=== PATIENT | female | born 1950 | race Caucasian/White ===

== ENCOUNTER 2020-10-29 11:02 | Emergency (ER) | payer MEDICARE ==
[~2020-10-29] VITALS: Ht 160 cm; Wt 59.6 kg
--- NOTE | 2020-10-29 11:25 | RAD ---
CT scan of the head without contrast 10/29/2020 Clinical History: Expressive aphasia. Code stroke. Technique: Unenhanced, contiguous, 5 mm axial sections were obtained through the head. One or more of the following individualized dose reduction techniques were utilized for this study: 1. Automated exposure control. 2. Adjustment of the mA and/or kV according to patient size. 3. Use of iterative reconstruction technique. Findings: No previous studies are available for comparison. There is mild generalized parenchymal atrophy. Areas of decreased attenuation are seen within the per iventricular and subcortical white matter of both cerebral hemispheres consistent with areas of small vessel ischemic disease. No acute parenchymal abnormality is seen. No extra-axial fluid collection i s noted. No skull fracture is seen. Impression: No acute intracranial abnormality is seen. This result was discussed with Dr. Corral at 1120 hours. FOR INTERNAL CODING PURPOSES RESULT CODE: (C) Electronically signed by: Ye Jackson MD (10/29/2020 11:22 AM) [id number]
--- NOTE | 2020-10-29 11:28 | EKG ---
[address] [address] Test Date: 2020-10-29 Test Time: 11:21:30 Pat Name: WILLY ORTIZ Department: Room: Gender: F [employer]: ZACHARY : 1950 Requested By: MADISON BAR Order Number: [id number] Reading MD: Measurements Intervals [place] Rate: 102 P: 60 MN: 148 QRS: -41 QRSD: 72 T: 74 QT: 338 QTc: 445 Interpretive Statements SINUS TACHYCARDIA LEFT ATRIAL ABNORMALITY ABNORMAL LEFT AXIS DEVIATION LEFT ANTERIOR FASCICULAR BLOCK QRS(T) CONTOUR ABNORMALITY CONSISTENT WITH ANTEROSEPTAL INFARCT AGE UNDETERMINED T ABNORMALITY IN HIGH LATERAL LEADS ABNORMAL ECG RI6.02 No previous ECG available for comparison
[2020-10-29] MEDS ORDERED: IV NORMAL SALINE 1,000ML 1,000 ML IV ONE (11:30)
[2020-10-29] MEDS ORDERED: ASPIRIN ENTERIC COATED 325 MG TABLET.DR. PO ONE ×2 (11:33→11:45)
[2020-10-29 11:41] LABS: BASO % 0 % (0-3); EOS % 0 % (0-3); HEMATOCRIT 44.9 % (36.0-47.0); HEMOGLOBIN 15.1 g/dL (12.0-15.5); LYMPH % 10 % (24-48); MEAN CORPUSCULAR HEMOGLOBIN 30 pg (25-35); MEAN CORPUSCULAR HGB CONC 34 g/dL (31-37); MEAN CORPUSCULAR VOLUME 90 fL (79-100); MONO # 0.5 x10^3/uL (0.0-1.1); MONO % 5 % (0-9); NEUT # 9.2 x10^3uL (1.8-7.7); NEUT % 85 % (31-73); PLATELET COUNT 237 x10^3/uL (140-400); RED BLOOD COUNT 4.96 x10^6/uL (3.50-5.40); RED CELL DISTRIBUTION WIDTH 12.5 % (11.5-14.5); WHITE BLOOD COUNT 10.8 x10^3/uL (4.0-11.0)
[2020-10-29] MEDS ORDERED: IOHEXOL 350 MG/ML 100 ML VIAL. IV ONE (11:45)
[2020-10-29 11:51] LABS: CALCIUM 9.7 mg/dL (8.5-10.1); CREATININE 0.8 mg/dL (0.6-1.0); GFR 71.1; POTASSIUM 4.1 mmol/L (3.5-5.1)
--- NOTE | 2020-10-29 11:57 | RAD ---
EXAM: Chest, single view. HISTORY: Altered mental status. COMPARISON: None. FINDINGS: A frontal view of the chest obtained. There is no infiltrate, pleural effusion or pneumotho rax. The heart is normal in size. There are circumscribed nodules overlying the lower thorax due to n ipple shadows. IMPRESSION: No acute pulmonary finding. Electronically signed by: Isadora Pavon MD (10/29/2020 11:54 AM) [id number]
[2020-10-29] MEDS ORDERED: CONTRAST GIVEN. MC PRN (12:00)
[2020-10-29 12:02] LABS: ALBUMIN 4.5 g/dL (3.4-5.0); ALBUMIN/GLOBULIN RATIO 1.4 (1.0-1.7); TOTAL BILIRUBIN 0.4 mg/dL (0.2-1.0); TOTAL PROTEIN 7.8 g/dL (6.4-8.2)
--- NOTE | 2020-10-29 12:22 | PHYS DOC ---
Past History Additional Past Medical Histor: Vertigo, "memory issues" Past Medical History Limited secondary to altered mental status. Past Surgical History: No Surgical History Past Surgical History Limited secondary to altered mental status. Smoking: Non-smoker Alcohol Use: None Drug Use: None Social History Limited secondary to altered mental status. General Adult EDM: Chief Complaint: ALTERED MENTAL STATUS HPI: HPI: 70-year-old female presents with her daughter by private vehicle with report of altered mental status. Daughter reports she was called by patient's place of employment at 0948 that the patient was acting abnormally. Daughter reports patient was acting "funny "and not comprehending what people were asking her. Daughter reports she arrived to work around 7 AM this morning but is unsure if she was completely normal at that time. Daughter reports that the last time she saw her normal was last night at approximately 2100 when patient was reading a story to her grandchildren. No history of trauma. Denies use of blood thinners. Denies fever or chills. Daughter reports significant family history of dementia and has noted some mild intermittent changes in her mother in regards to some short-term memory issues however today's presentation is significantly different than prior. History of present illness limited secondary to altered mental status. Review of Systems: Review of Systems: Constitutional: Denies fever or chills Cardiovascular: Denies chest pain or palpitations GI: Denies abdominal pain, nausea, or vomiting : Denies dysuria or hematuria Neurologic: Denies headache; reports altered mental status Review of systems limited secondary to altered mental status. Current Medications: Current Meds: Current Medications Medications (Trade) Dose Ordered Sig/Gagan Start Time Stop Time Status Last Admin Dose Admin Aspirin (Aspirin Enteric Coated) 325 mg STK-MED ONCE 10/29/20 11:33 10/29/20 11:33 DC Info (Do NOT chart on this entry -- for MONITORING) 1 each PRN DAILY PRN 10/29/20 12:00 10/31/20 11:59 Iohexol (Omnipaque 350 Mg/ml) 100 ml 1X ONCE 10/29/20 11:45 10/29/20 11:48 DC 10/29/20 11:46 100 ML Sodium Chloride 1,000 ml @ 1,000 mls/hr 1X ONCE 10/29/20 11:30 10/29/20 12:29 10/29/20 11:30 1,000 MLS/HR Allergies: Allergies: Allergies Coded Allergies Type Severity Reaction Last Updated Verified No Known Drug Allergies 10/29/20 No Physical Exam: PE: Constitutional: Well developed, well nourished, no acute distress, non-toxic appearance, confused HENT: Normocephalic, atraumatic Eyes: PERRL, EOMI, conjunctiva normal, no discharge Neck: Normal range of motion, no tenderness, supple Lungs & Thorax: No respiratory distress, equal chest rise and fall Abdomen: Soft, no tenderness Skin: Warm, dry, no erythema, no rash Back: No tenderness, no CVA tenderness Extremities: No tenderness, ROM intact, no edema, no deformity, strength 5/5 to BUE and BLE Neurologic: Alert and oriented X 1, confused, expressive aphasia, normal motor function, normal sensory function, speech normal Psychologic: Affect normal, judgment abnormal Current Patient Data: Labs: Laboratory Tests Test 10/29/20 11:12 10/29/20 11:23 Glucose (Fingerstick) 118 mg/dL (70-99) H White Blood Count 10.8 x10^3/uL (4.0-11.0) Red Blood Count 4.96 x10^6/uL (3.50-5.40) Hemoglobin 15.1 g/dL (12.0-15.5) Hematocrit 44.9 % (36.0-47.0) Mean Corpuscular Volume 90 fL (79-100) Mean Corpuscular Hemoglobin 30 pg (25-35) Mean Corpuscular Hemoglobin Concent 34 g/dL (31-37) Red Cell Distribution Width 12.5 % (11.5-14.5) Platelet Count 237 x10^3/uL (140-400) Neutrophils (%) (Auto) 85 % (31-73) H Lymphocytes (%) (Auto) 10 % (24-48) L Monocytes (%) (Auto) 5 % (0-9) Eosinophils (%) (Auto) 0 % (0-3) Basophils (%) (Auto) 0 % (0-3) Neutrophils # (Auto) 9.2 x10^3uL (1.8-7.7) H Lymphocytes # (Auto) 1.0 x10^3/uL (1.0-4.8) Monocytes # (Auto) 0.5 x10^3/uL (0.0-1.1) Eosinophils # (Auto) 0.0 x10^3/uL (0.0-0.7) Basophils # (Auto) 0.0 x10^3/uL (0.0-0.2) Prothrombin Time 9.9 SEC (9.4-11.4) Prothrombin Time INR 1.0 (0.9-1.1) Activated Partial Thromboplast Time 26 SEC (23-33) Sodium Level 144 mmol/L (136-145) Potassium Level 4.1 mmol/L (3.5-5.1) Chloride Level 104 mmol/L (98-107) Carbon Dioxide Level 26 mmol/L (21-32) Anion Gap 14 (6-14) Blood Urea Nitrogen 15 mg/dL (7-20) Creatinine 0.8 mg/dL (0.6-1.0) Estimated GFR (Cockcroft-Gault) 71.1 BUN/Creatinine Ratio 19 (6-20) Glucose Level 119 mg/dL (70-99) H Calcium Level 9.7 mg/dL (8.5-10.1) Magnesium Level 2.0 mg/dL (1.8-2.4) Total Bilirubin 0.4 mg/dL (0.2-1.0) Aspartate Amino Transferase (AST) 15 U/L (15-37) Alanine Aminotransferase (ALT) 39 U/L (14-59) Alkaline Phosphatase 86 U/L (46-116) Ammonia < 10 mcmol/L (11-34) L Troponin I Quantitative < 0.170 ng/mL (0-0.055) H Total Protein 7.8 g/dL (6.4-8.2) Albumin 4.5 g/dL (3.4-5.0) Albumin/Globulin Ratio 1.4 (1.0-1.7) Ethyl Alcohol Level < 10 mg/dL (0-10) EKG: EKG: @1121 Sinus tachycardia at 102bpm, NO ST elevation, QRS 72ms, QT/QTc 338/445ms, some wandering baseline/artifact Radiology/Procedures: Radiology/Procedures: PROCEDURE: CT CODE STROKE HEAD WO CT scan of the head without contrast 10/29/2020 Clinical History: Expressive aphasia. Code stroke. Technique: Unenhanced, contiguous, 5 mm axial sections were obtained through the head. One or more of the following individualized dose reduction techniques were utilized for this study: 1. Automated exposure control. 2. Adjustment of the mA and/or kV according to patient size. 3. Use of iterative reconstruction technique. Findings: No previous studies are available for comparison. There is mild generalized parenchymal atrophy. Areas of decreased attenuation are seen within the periventricular and subcortical white matter of both cerebral hemispheres consistent with areas of small vessel ischemic disease. No acute parenchymal abnormality is seen. No extra-axial fluid collection is noted. No skull fracture is seen. Impression: No acute intracranial abnormality is seen. This result was discussed with Dr. Bar at 1120 hours. FOR INTERNAL CODING PURPOSES RESULT CODE: (C) PROCEDURE: CHEST AP ONLY EXAM: Chest, single view. HISTORY: Altered mental status. COMPARISON: None. FINDINGS: A frontal view of the chest obtained. There is no infiltrate, pleural effusion or pneumothorax. The heart is normal in size. There are circumscribed nodules overlying the lower thorax due to nipple shadows. IMPRESSION: No acute pulmonary finding. Electronically signed by: Isadora Pavon MD (10/29/2020 11:54 AM) [id number] PROCEDURE: CT ANGIOGRAPHY HEAD AND NECK EXAM: CT angiogram of the head and neck with intravenous contrast. HISTORY: Excessive aphasia. TECHNIQUE: Computed tomographic images the head and neck were obtained following the administration of intravenous contrast. 3-dimensional images were obtained. *One or more of the following individualized dose reduction techniques were utilized for this examination: 1. Automated exposure control. 2. Adjustment of the mA and/or kV according to patient size. 3. Use of iterative reconstruction technique. COMPARISON: Noncontrast head CT obtained on the same date. FINDINGS: There is a normal caliber aortic arch and standard aortic arch branching pattern. There is partially calcified atherosclerotic plaque at the origin of the left subclavian artery, without evidence of stenosis. The carotid bifurcations are widely patent. There is slight asymmetry in the caliber of the left greater than right internal carotid arteries which is likely physiologic given the absence of focal stenosis. The anterior communicating artery is patent. The posterior communicating arteries are likely developmentally absent. There is no arterial occlusion or severe stenosis. There is no suspicious enhancing lesion. There is no aneurysm or vascular malformation. The basilar artery is widely patent. There is a dominant left vertebral artery and hypoplastic distal right vertebral artery, a normal variant. There is mild partially calcified atherosclerotic plaque involving the distal left vertebral artery, with approximately 50 percent stenosis at the skull base. The nonangiographic portion of the exam demonstrates no mass effect or midline shift. There is no hydrocephalus. The orbits are unremarkable. The paranasal sinuses are clear. The mastoid air cells are clear. There are degenerative changes throughout the cervical spine. This results in moderate right foraminal stenosis at C3-C4, mild to moderate right and moderate left foraminal stenosis at C5-C6 and moderate left foraminal stenosis at C6-C7. There is a heterogeneous thyroid containing multiple nodules and cysts. There is biapical pleural parenchymal scarring and emphysema. There is no neck lymphadenopathy. The airway is midline and patent. IMPRESSION: 1. No evidence of severe stenosis or arterial occlusion. There is mild atherosclerotic plaque within the distal left vertebral artery with approximately 50 percent stenosis. There are normal cerebral vascular anatomic variants, described above. 2. Cerebral white matter changes, likely due to chronic small vessel disease. Note is made that MRI is more sensitive for acute infarction. 3. Multilevel degenerative change involving the cervical spine, resulting in stenosis as described above. 4. Heterogeneous thyroid containing multiple nodules. Findings were discussed with Dr. Bar in the ED at 1220 hours on 10/29/2020. PQRS Compliance Statement - Stenosis calculations for CT, MR and conventional angiography are based upon measurement of the distal ICA diameter in accordance with the NASCET methodology. Stenosis calculations for carotid ultrasound studies are derived from validated velocity criteria which are known to correlate with the NASCET methodology. Electronically signed by: Isadora Pavon MD (10/29/2020 12:21 PM) [id number] Electronically signed by: Ye Jackson MD (10/29/2020 11:22 AM) [id number] Heart Score: C/O Chest Pain: N/A Course & Med Decision Making: Course & Med Decision Making Pertinent Labs and Imaging studies reviewed. (See chart for details) Patient presents with report of altered mental status. There is lack of clarity regarding patient's last known well. Patient had presented to work at approximately 0700 but no one was able to confirm that patient was completely normal. Daughter received call at 0948. NIHSS 5 upon arrival primarily due to expressive aphasia. Patient is unable to recognize any of the pictures and unable to read words or sentences in stroke packet. No motor deficit appreciated. Sensation intact. Code stroke called. Patient sent immediately for CT head. CT head without acute process. Aspirin provided. Given lack of clarity regarding last known well, decision to hold TPA. This was discussed with both patient and her daughter who are both in agreement. CTA head and neck also without acute process. Labs also previously obtained and posted to chart. WBC within normal limits. No electrolyte abnormality appreciated. Ammonia negative. Lactic acid slightly elevated at 2.3. UA without signs of infection. EKG stable. Chest x-ray also stable. Patient requiring transfer for admission to [facility] due to nee d for neurology and MRI for further evaluation and treatment. Discussed with Dr. Boucher (hospitalist) who is in agreement with transfer for admission at [facility]. Discussed case with Dr. Soler (neurology), who is in agreement with consultation. Discussed findings and plan with patient and her daughter, who acknowledge understanding and agreement. Kim Disclaimer: Kim Disclaimer: This electronic medical record was generated, in whole or in part, using a voice recognition dictation system. Departure Departure: Impression: Primary Impression: Expressive aphasia Additional Impression: Lactic acidosis Disposition: 02 DC/TRF OTHER SHORT TERM HOS ([facility]- Dr. Boucher accepting) Admitting Physician: Aren Boucher Condition: STABLE Referrals: PCP,UNKNOWN (PCP) NIHSS - ED NIH Stroke Scale: NIH Stroke Scale Response (Comments) Value Level of Consciousness: 0 Alert/Responsive 0 LOC Questions: 1 Answers one correctly 1 LOC Commands: 2 Perform neither task 2 Best Gaze: 0 Normal 0 Visual: 0 No visual loss 0 Facial Palsy: 0 Normal, symmetrical 0 Motor - Left Arm 0 No drift 0 Motor - Right Arm 0 No drift 0 Motor - Left Leg 0 No drift 0 Motor: Right Leg 0 No drift 0 Limb Ataxia: 0 Absent 0 Sensory: 0 No loss 0 Best Language: 2 Severe aphasia (Expressive) 2 Dysathria: 0 Normal 0 Extinction and Inattention: 0 Normal 0 Total 5 Critical Care Time Critical care time was 30 minutes which includes time at bedside, spent in discussion of patient's care with specialists and/or family members, with interpretation of laboratory and/or radiological studies and is exclusive of procedures. MADISON BAR DO Oct 29, 2020 12:22
--- NOTE | 2020-10-29 12:23 | RAD ---
EXAM: CT angiogram of the head and neck with intravenous contrast. HISTORY: Excessive aphasia. TECHNIQUE: Computed tomographic images the head and neck were obtained following the administration o f intravenous contrast. 3-dimensional images were obtained. *One or more of the following individualized dose reduction techniques were utilized for this examina tion: 1. Automated exposure control. 2. Adjustment of the mA and/or kV according to patient size. 3. Use of iterative reconstruction technique. COMPARISON: Noncontrast head CT obtained on the same date. FINDINGS: There is a normal caliber aortic arch and standard aortic arch branching pattern. There is partially calcified atherosclerotic plaque at the origin of the left subclavian artery, without evide nce of stenosis. The carotid bifurcations are widely patent. There is slight asymmetry in the caliber of the left greater than right internal carotid arteries which is likely physiologic given the absen ce of focal stenosis. The anterior communicating artery is patent. The posterior communicating arteri es are likely developmentally absent. There is no arterial occlusion or severe stenosis. There is no suspicious enhancing lesion. There is no aneurysm or vascular malformation. The basilar artery is wid bryan patent. There is a dominant left vertebral artery and hypoplastic distal right vertebral artery, a normal variant. There is mild partially calcified atherosclerotic plaque involving the distal left vertebral artery, with approximately 50 percent stenosis at the skull base. The nonangiographic portion of the exam demonstrates no mass effect or midline shift. There is no hyd rocephalus. The orbits are unremarkable. The paranasal sinuses are clear. The mastoid air cells are c lear. There are degenerative changes throughout the cervical spine. This results in moderate right fo raminal stenosis at C3-C4, mild to moderate right and moderate left foraminal stenosis at C5-C6 and m oderate left foraminal stenosis at C6-C7. There is a heterogeneous thyroid containing multiple nodule s and cysts. There is biapical pleural parenchymal scarring and emphysema. There is no neck lymphaden opathy. The airway is midline and patent. IMPRESSION: 1. No evidence of severe stenosis or arterial occlusion. There is mild atherosclerotic plaque within the distal left vertebral artery with approximately 50 percent stenosis. There are normal cerebral va scular anatomic variants, described above. 2. Cerebral white matter changes, likely due to chronic small vessel disease. Note is made that MRI i s more sensitive for acute infarction. 3. Multilevel degenerative change involving the cervical spine, resulting in stenosis as described ab ove. 4. Heterogeneous thyroid containing multiple nodules. Findings were discussed with Dr. Corral in the ED at 1220 hours on 10/29/2020. PQRS Compliance Statement - Stenosis calculations for CT, MR and conventional angiography are based u anisa measurement of the distal ICA diameter in accordance with the NASCET methodology. Stenosis calcu lations for carotid ultrasound studies are derived from validated velocity criteria which are known t o correlate with the NASCET methodology. Electronically signed by: Isadora Pavon MD (10/29/2020 12:21 PM) [id number]
[2020-10-29 12:31] LABS: BARBITURATES NEG (NEG); BENZODIAZEPINES NEG (NEG); CANNABINOIDS NEG (NEG); COCAINE NEG (NEG); METHADONE NEG (NEG); OPIATES NEG (NEG); PHENCYCLIDINE NEG (NEG)
[2020-10-29 12:38] LABS: AMPHETAMINE/METHAMPHETAMINE NEG (NEG)
[2020-10-29 12:47] LABS: BILIRUBIN,URINE NEG (NEG); CLARITY,URINE CLEAR; COLOR,URINE STRAW; GLUCOSE,URINE NEG (NEG); NITRITE,URINE NEG (NEG); UROBILINOGEN,URINE 0.2 mg/dL (0.2 mg/dL)
[2020-10-29 12:48] LABS: BACTERIA,URINE 0 /HPF (0-FEW); RBC,URINE OCC /HPF (0-2); SQUAMOUS EPITHELIAL CELL,UR FEW /LPF; WBC,URINE OCC /HPF (0-4)
[2020-10-29 14:12] VITALS: BP 180/103
== END 2020-10-29 14:24 | disposition short-term general hospital (02) ==
LOC: ER 11:02
DX: R47.01 Aphasia (principal); E87.2 Acidosis; R41.0 Disorientation, unspecified
CPT/HCPCS: 36415; 70450; 70496; 70498; 71045; 80053; 80307; 81001; 82140; 82553; 82947; 83605; 83735; 84484; 85025; 85610; 85730; 93005; 96360; 96361; 99291; G0480; J7030; Q9967